=== PATIENT | female | born 1955 | race Caucasian/White ===

== ENCOUNTER → 2017-07-18 | Outpatient (CLI) | payer BC ==
[~2017-07-18] MED LIST: METHACHOLINE KIT (J7674) INH ONE
--- NOTE | 2017-07-18 14:51 | PFTRPT ---
Tech: Nafisa IVY RRT Age: 61 Sex: Female Race: Height: 65.00 Inches Weight: 151.00 Lbs BSA: 1.76 Diagnosis: R05 METHACHOLINE CHALLENGE REPORT: ORDERING PROVIDER: Dami Arreguin MD DATE OF SERVICE: 07/18/17 INTERPRETATION: The study was of excellent technical quality. Under protocol, methacholine was administered. Even after a maximal dose of 25 mg (188.875 CDUs) of methacholine , no provocation dose was ever achieved. IMPRESSION: Negative methacholine challenge study. MTDD
== END ==
LOC: M CARPUL 13:19
PROVIDERS: ATTEND Internal Medicine Pulmonary Disease
DX: R05 Cough (principal)

== ENCOUNTER → 2017-07-22 | Outpatient (REF) | payer BC ==
[2017-07-22 14:31] LABS: IMMUNOGLOBULIN M 79.7 MG/DL (40-230)
== END ==
LOC: M LAB REF 13:05
PROVIDERS: ATTEND Internal Medicine Pulmonary Disease
DX: R91.1 Solitary pulmonary nodule (principal)